=== PATIENT | male | born 1965 | race Caucasian/White ===

== ENCOUNTER → 2017-01-19 | Outpatient (CLI) | payer OTHER ==
[~2017-01-19] MED LIST: ALLEGRA ALLERGY60 MG PO; ALPRAZOLAM0.5 MG PO; BACTRIM D.S. TAB1 EA PO; LISINOPRIL10 MG PO; NEURONTIN 400400 MG PO; NORCO 10-325 T1 EACH PO; NORVASC 5 MG TAB5 MG PO; PAXIL40 MG PO; SIMVASTATIN80 MG PO; TENORMIN 50 MG50 MG PO
== END ==
LOC: KOH-I 09:24
DX: E22.1 Hyperprolactinemia (principal)
CPT/HCPCS: 70470; Q9962